=== PATIENT | female | born 1960 | race African-American/Black ===

== ENCOUNTER 2018-01-24 09:39 | Emergency (ER) | payer OTHER ==
--- NOTE | 2018-01-24 11:19 | RAD REPORT ---
EXAM DESCRIPTION: Shoulder Right 2 View - 01/24/2018 11:05 am CLINICAL HISTORY: Persistent shoulder pain following fall 1 week earlier COMPARISON: None. TECHNIQUE: Internal and external rotation views of the right shoulder were obtained. FINDINGS: No fracture of the proximal humerus seen. No dislocations suspected. Patient has degenerat iggy change at the AC joint and along the undersurface of the acromion. Anterior rotation of the shoul balbina girdle creates superimposed acromion over the acromial humeral joint space. Posttraumatic or dege nerative calcifications seen near the superolateral humeral head. This is not suspected to be related to the most recent shoulder injury. IMPRESSION: Right shoulder joint degenerative changes are present without fracture, dislocation or o ther acute finding. Concerns for occult bone process, rotator cuff tear or other soft tissue joint injury can be addresse d with MR imaging.
--- NOTE | 2018-01-24 11:48 | ER ---
Nurse's Notes [facility] Name: Libia Brady Age: 57 yrs Sex: Female : 1960 Arrival Date: 01/24/2018 Time: 09:43 Bed 25 Private MD: Kem Myers Diagnosis: Pain in right shoulder Presentation: 01/24 09:46 Presenting complaint: Patient states: Right shoulder pain after mechanical fall from standing 1 week ago. Denies other injuries. Negative LOC. Transition of care: patient was not received from another setting of care. Onset of symptoms was January 16, 2018. Risk Assessment: Do you want to hurt yourself or someone else? Patient reports no desire to harm self or others. Initial Sepsis Screen: Does the patient meet any 2 criteria? No. Patient's initial sepsis screen is negative. Does the patient have a suspected source of infection? No. Patient's initial sepsis screen is negative. Care prior to arrival: Medication(s) given: [place] at 0530. 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 - Social history:: Smoking status: Patient/guardian denies using tobacco, Patient/guardian denies using alcohol, street drugs, The patient lives with family. - Ebola Screening: : No symptoms or risks identified at this time. - Family history:: not pertinent. Screenin:38 Abuse screen: Denies threats or abuse. Denies injuries from another. Nutritional aj1 screening: No deficits noted. Tuberculosis screening: No symptoms or risk factors identified. Assessment: 11:38 General: Appears in no apparent distress. Behavior is calm, cooperative, appropriate aj1 for age. Pain: Complains of pain in anterior aspect of right shoulder and posterior aspect of right shoulder Pain currently is 8 out of 10 on a pain scale. Neuro: Level of Consciousness is awake, alert, obeys commands. Cardiovascular: Patient's skin is warm and dry. Respiratory: Airway is patent Respiratory effort is even, unlabored, Respiratory pattern is regular, symmetrical. GI: No signs and/or symptoms were reported involving the gastrointestinal system. : No signs and/or symptoms were reported regarding the genitourinary system. EENT: No signs and/or symptoms were reported regarding the EENT system. Derm: Skin is pink, warm \T\ dry. normal. Musculoskeletal: Range of motion: limited in right shoulder. Vital Signs: 09:46 BP 151 / 78; Pulse 73; Resp 16; Temp 97.1; Pulse Ox 100% on R/A; Weight 141.52 kg; hb Height 5 ft. 7 in. (170.18 cm); Pain 8/10; 09:46 Body Mass Index 48.87 (141.52 kg, 170.18 cm) hb ED Course: 09:43 Patient arrived in ED. sb2 09:44 Kem Myers MD is Private Physician. sb2 09:48 Triage completed. hb 09:49 Arm band placed on right wrist. hb 10:07 Saurav Pantoja MD is Attending Physician. ma2 11:03 X-ray completed. Patient tolerated procedure well. Patient moved back from radiology. 1 11:05 Shoulder Right (2 View) XRAY In Process Unspecified. EDMS 11:36 Tianna Traore, RN is Primary Nurse. aj1 11:38 Patient has correct armband on for positive identification. Bed in low position. Call aj1 light in reach. Side rails up X 1. 11:38 No provider procedures requiring assistance completed. aj1 Administered Medications: No medications were administered Outcome: 11:47 Discharge ordered by . ma2 12:13 Patient left the ED. Signatures: Dispatcher [employer] EDDE Tianna Traore, SHEELA RN aj1 Lauren Fatima [facility] Goldie Stewart RN RN Saurav Pantoja MD MD ma2 [place], Sheri 2
--- NOTE | 2018-01-24 11:48 | EDPHYS ---
Physician Documentation [facility] Name: Libia Brady Age: 57 yrs Sex: Female : 1960 Arrival Date: 01/24/2018 Time: 09:43 Bed 25 Private MD: Kem Myers ED Physician Saurav Pantoja HPI: 01/24 11:12 This 57 yrs old Black Female presents to ER via Ambulatory with complaints of Fall ma2 Injury - SHOULDER,ARM. 11:12 Details of fall: The patient fell from an upright position. Onset: The symptoms/episode ma2 began/occurred suddenly, 1 week(s) ago. Associated injuries: The patient sustained right shoulder. Severity of symptoms: At their worst the symptoms were mild, in the emergency department the symptoms are unchanged. The patient has not experienced similar symptoms in the past. 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 - Social history:: Smoking status: Patient/guardian denies using tobacco, Patient/guardian denies using alcohol, street drugs, The patient lives with family. - Ebola Screening: : No symptoms or risks identified at this time. - Family history:: not pertinent. ROS: 11:12 Constitutional: Negative for fever, chills, and weight loss, Eyes: Negative for injury, ma2 pain, redness, and discharge. 11:12 Neck: Negative for injury, pain, and swelling, Cardiovascular: Negative for chest pain, palpitations, and edema, Respiratory: Negative for shortness of breath, cough, wheezing, and pleuritic chest pain, Abdomen/GI: Negative for abdominal pain, nausea, diarrhea, and constipation. 11:12 MS/extremity: Positive for right shoulder pain. 11:12 All other systems are negative. Exam: 11:12 Constitutional: This is a well developed, well nourished patient who is awake, alert, ma2 and in no acute distress. Head/Face: Normocephalic, atraumatic. Chest/axilla: Normal chest wall appearance and motion. Nontender with no deformity. No lesions are appreciated. Cardiovascular: Regular rate and rhythm with a normal S1 and S2. No gallops, murmurs, or rubs. Normal PMI, no JVD. No pulse deficits. MS/ Extremity: Pulses equal, no cyanosis. Neurovascular intact. Full, normal range of motion. Neuro: Awake and alert, GCS 15, oriented to person, place, time, and situation. Cranial nerves II-XII grossly intact. Motor strength 5/5 in all extremities. Sensory grossly intact. Cerebellar exam normal. Normal gait. 11:12 Musculoskeletal/extremity: right shoulder limiter abduction d/t. Vital Signs: 09:46 BP 151 / 78; Pulse 73; Resp 16; Temp 97.1; Pulse Ox 100% on R/A; Weight 141.52 kg; hb Height 5 ft. 7 in. (170.18 cm); Pain 8/10; 09:46 Body Mass Index 48.87 (141.52 kg, 170.18 cm) hb MDM: 10:07 Patient medically screened. ma2 11:12 Differential diagnosis: contusion, fracture, multiple trauma, sprain, strain. Data ma2 reviewed: vital signs, nurses notes, lab test result(s), radiologic studies. Response to treatment: declined pain medicine in er or at home . ED course: likely having rotator cough injury. 01/24 10:28 Order name: Shoulder Right (2 View) XRAY; Complete Time: 11:45 ma2 01/24 10:28 Order name: Arm-Sling; Complete Time: 11:01 ma2 Administered Medications: No medications were administered Disposition: 01/24/18 11:47 Discharged to Home. Impression: Pain in right shoulder. - Condition is Stable. - Discharge Instructions: Shoulder Pain. - Prescriptions for Tylenol- Codeine #3 300-30 mg Oral Tablet - take 2 tablet by ORAL route every 6 hours As needed; 30 tablet. - Medication Reconciliation Form, Thank You Letter, Antibiotic Education, Prescription Opioid Use form. - Follow up: Private Physician; When: Tomorrow; Reason: Continuance of care. - Problem is new. - Symptoms are unchanged. Signatures: Dispatcher [employer] EDMS Jerome Stewarther, RN RN Saurav Pantoja MD MD ma2 Corrections: (The following items were deleted from the chart) 12:13 11:47 01/24/2018 11:47 Discharged to Home. Impression: Pain in right shoulder. hb Condition is Stable. Forms are Medication Reconciliation Form, Thank You Letter, Antibiotic Education, Prescription Opioid Use. Follow up: Private Physician; When: Tomorrow; Reason: Continuance of care. Problem is new. Symptoms are unchanged. ma2
== END 2018-01-24 12:13 | disposition home or self-care (01) ==
LOC: ER 09:39
DX: M25.511 Pain in right shoulder (principal); I10 Essential (primary) hypertension
CPT/HCPCS: 99282